=== PATIENT | female | born 1970 | race Caucasian/White ===

== ENCOUNTER → 2024-10-04 | Outpatient (REF) | payer BC | LOC: RESP 12:59 → EDSTATUS 13:00 | PROVIDERS: ATTEND Nurse Practitioner Family | DX: R05.3 Chronic cough (principal); J45.909 Unspecified asthma, uncomplicated; J42 Unspecified chronic bronchitis; K21.9 Gastro-esophageal reflux disease without esophagitis; E66.9 Obesity, unspecified | CPT/HCPCS: 94060; 94727; 94729 ==